=== PATIENT | male | born 1960 | race Caucasian/White ===

== ENCOUNTER 2018-11-02 15:43 | Inpatient (IN) | payer MEDICARE ==
[~2018-11-02] VITALS: Ht 193 cm; Wt 132.7 kg
--- NOTE | ~2018-11-02 | PR ---
[place], [place] PROGRESS NOTE NAME: [id number] UNIT #: [id number] ROOM: 316 DOCTOR: ISAIAS ACEVES CNP BIRTHDATE: [birth year] DOS: 11/13/2018 CHIEF COMPLAINT: "I have slept since 8:00 last night." SUMMARY OF THE VISIT: The patient was interviewed as he sat on the edge of his bed. The patient was sleeping when I entered the room, but he did arouse easily when I called his name. The patient denies any auditory or visual hallucinations. The patient reports that he feels good. Therefore, the patient reports that his appetite has been good. The patient's speech does remain somewhat garbled and difficult to understand. Staff reports that the patient did sleep 6 hours last night. No behaviors. No agitation. MENTAL STATUS EXAMINATION: The patient is alert and oriented. He is pleasant and cooperative with me. No eren or hypomania noted. No delusions or paranoia noted. No psychotic symptoms noted. No auditory or visual hallucinations noted. The patient's mood was calm. The patient's affect is congruent with mood. PLAN: We will continue the patient's medications as prescribed. We will monitor for benefits and side effects of the medication. Continue to monitor the patient's sleep pattern. Encourage sleep hygiene. Encouraged the patient to engage in individual and chowdhury milieu activity. Continue fall and safety precautions. Plan is to return the patient to the least restrictive environment once he is considered psychiatrically stable. Isaias Aceves CNP CM:PNTRANS [id number] ISAIAS ACEVES CNP 11/13/18 2258 interface
--- NOTE | ~2018-11-02 | DS ---
[place], [place] DISCHARGE SUMMARY [id number] UNIT #: [id number] ROOM: 311 DOCTOR: AMANDA DE LEÓN MD BIRTHDATE: [birth year] DOS: 11/15/2018 CHIEF COMPLAINT: "I need a good doctor, I need an eye doctor." HISTORY OF PRESENT ILLNESS: This is a 58-year-old white male known to me from his previous admission here to the [facility] at [facility] as well as his stay at [facility] in [place], [place]. The patient presented after being medically cleared at [facility]. His behavior at [facility] has escalated over the last several weeks prior to this admission. He has become actively psychotic and experiencing significant hallucinations and delusions. He has been agitated and aggressive and threatening. He kicked out his screen window. He believes that his meds are causing him to be unable to walk. He has been urinating in jars in his room and keeping them. He has been making threatening gestures and threatening violence towards staff and peers. He has become episodically compliant and noncompliant with his medications, necessitating an admission and to re-stabilize on medication. SUMMARY OF HOSPITAL COURSE: The patient was admitted to the unit where his Invega Sustenna was discontinued. Despite compliance with it, he became psychotic. Nonetheless, the patient did receive Geodon intramuscular injections with relatively good results and with a good tolerability. For this reason, Geodon 80 mg b.i.d. was started. The patient had a bout then where he seemed to improve from a psychotic standpoint, but he was not sleeping and would often go days then without sleep often wandering the halls aimlessly. Geodon was then shifted to 160 mg at bedtime in an effort to help him sleep. Despite this, he did not sleep and trazodone 150 mg was added and subsequently increased to 300 mg at bedtime with good results. The patient had tolerated this medication regimen well and did improve sufficiently to return back to [facility] where we will follow him closely. MENTAL STATUS AT DISCHARGE: He is alert and oriented to person, place and very approximate to time. Mood does seem to be fairly euthymic. Affect is much more appropriate. His speech is somewhat garbled and slow and deliberate, but this is baseline. There is no overt hypomania or eren and there is no gross psychosis. Short, intermediate, and long-term memory for the most part is intact. FINAL DIAGNOSIS UPON DISCHARGE: Schizoaffective disorder. DISPOSITION: All of his prescriptions have been printed and will be sent to him as he returns to [facility]. At the time of discharge, he was medically and psychiatrically stable. I will be the treating psychiatrist of record upon his readmission to [facility]. [place], [place] DISCHARGE SUMMARY NAME: RADHA BRUMFIELD UNIT #: [id number] ROOM: [facility] DOCTOR: AMANDA DE LEÓN MD BIRTHDATE: [birth year] AMANDA DE LEÓN MD CM:DISCHARG [id number] AMANDA DE LEÓN MD 11/15/18 1035 interface
--- NOTE | ~2018-11-02 | PR ---
[place], [place] PROGRESS NOTE NAME: [id number] UN[facility] #: [id number] ROOM: 311 DOCTOR: ISAIAS ACEVES CNP BIRTHDATE: [birth year] DOS: 11/14/2018 CHIEF COMPLAINT: "I slept good." SUMMARY OF VISIT: The patient was interviewed as he sat on the edge of his bed. The patient was sleeping whenever I entered his room; however, he aroused easily whenever I called his name. The patient reports that he slept well last night; however, he does feel somewhat tired this morning. The patient reports that his appetite has been good. He denies hearing any auditory or visual hallucinations. Staff reports that the patient did sleep 7 hours last night and has been compliant with taking medication. MENTAL STATUS EXAMINATION: The patient is alert and oriented. He is pleasant and cooperative with me. No eren or hypomania noted. No delusions or paranoia noted. No psychotic symptoms noted. No auditory or visual hallucinations noted. The patient's mood was calm. Affect congruent with mood. PLAN: Continue patient's medications as prescribed. He appears to be tolerating them. The medication appears to be effective. I will encourage the patient to engage in individual and chowdhury milieu activity. Continue fall and safety precautions. Plan is to return the patient to the least restrictive environment once he is considered psychiatrically stable. Isaias Aceves CNP CM:PNTRANS [id number] ISAIAS ACEVES CNP 11/15/18 0047 interface
--- NOTE | ~2018-11-02 | PR ---
[place], [place] PROGRESS NOTE NAME: RADHA BRUMFIELD UNIT #: [id number] ROOM: 316 DOCTOR: AMANDA DE LEÓN MD BIRTHDATE: [birth year] DOS: 11/11/2018 INTERVAL NOTE CHIEF COMPLAINT: "I slept. They do not like me here. They are making up stories." SUMMARY OF THE VISIT: The patient was interviewed as he was sitting on the edge of his bed. He reports that he got a good 12 hours of sleep last night. Nurses report, he slept only about 2 and then the rest of the time was wandering the halls. He stated that this is not true and that the nurses do not like him and they made stories up about him, whether this is true paranoia or cognitive issues is unclear. His speech was more understandable today and again whether this was because of the addition or the increase in the Cogentin with a Xero-Lube is unclear. MENTAL STATUS: He is alert and oriented with significant time gaps. Mood does seem to be more euthymic. Affect is more appropriate. He still is somewhat garbled, but more understandable. There is no hypomania or eren, although the sleep issue is problematic. He voiced no auditory or visual hallucinations, but does seem to be somewhat paranoid regarding staff. Memory has significant gaps. PLAN: I will increase his trazodone from 150 mg at bedtime to 300 mg at bedtime and check a valproic acid level today at 3:00 p.m. to ensure that it is therapeutic. Continue to engage in individual and chowdhury milieu activity, returning to the least restrictive environment when psychiatrically stable. AMANDA DE LEÓN MD CM:PNTRANS [phone] AMANDA DE LEÓN MD 11/12/18 0129 interface
--- NOTE | ~2018-11-02 | CON ---
[place], [place] REPORT OF CONSULTATION NAME: [facility] BRUMFIELD [facility] [id number] UNIT #: [id number] ROOM: 316 DOCTOR: SUKI TEIXEIRA ED.D (LONNIE) BIRTHDATE: [birth year] DOS: HISTORY OF PRESENT ILLNESS: The patient is a 58-year-old male referred by Dr. Handley for counseling and evaluation. At the present time, this patient is on the Senior Behavioral Health Unit at [facility]. He states he is single and has never been . He does have a daughter in [place], [place]. He works now at the [employer]. 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 He did graduate high school and also attended [employer] for 2 years in [place], [place]. As his mental illness worsened, he was unable to complete his degree and also he had suffered a traumatic brain injury. This patient is presently residing at [facility] near [place], [place]. His medical history is pertinent for schizoaffective disorder, history of traumatic brain injury, coronary artery disease, congestive heart failure, chronic kidney disease stage 2, prostate cancer, morbid obesity and diabetes mellitus. MEDICATIONS: Include Remeron, Cogentin, Geodon, tramadol, calcium, lisinopril, benztropine, glipizide, clonidine, atenolol, metformin, omeprazole and ziprasidone. ALLERGIES: He is allergic to PENICILLIN and SULFA type drugs. SOCIAL HISTORY: He does admit to smoking cigarettes, but denies any alcohol use or abuse. This patient was awake, alert and oriented in all three spheres. He states he did attempt suicide when he was about 19 years old, but has not attempted since that point in time. He states he does suffer from depression and is obviously suffering from some psychotic issues. He states he is feeling much better now that he is in the [facility] Unit, although he does plan on going back to [facility]. This patient appears to be awake, alert and oriented in all 3 spheres and at this time, denies any suicidal or homicidal ideation or plan. He had become quite aggressive apparently at the long-term care facility, but has manifested no aggressive behavior over his stay here at the hospital. DIAGNOSIS: Schizoaffective disorder. RECOMMENDATIONS: In my opinion, this patient should return to [facility] once he is medically stable and should continue with Dr. Handley and also with the counseling. Thank you very much for this consult. [place], [place] REPORT OF CONSULTATION NAME: RADHA BRUMFIELD UNIT #: [id number] ROOM: [facility] DOCTOR: SUKI TEIXEIRA ED.D (LONNIE) BIRTHDATE: [birth year] SUKI TEIXEIRA ED.D CM:CONSTR:REPORT OF CONSULTATION 1142 11/08/18 3857 interface AMANDA HANDLEY MD
--- NOTE | ~2018-11-02 | PR ---
[place], [place] PROGRESS NOTE NAME: [facility]FIELD [id number] UNIT #: [id number] ROOM: 316 DOCTOR: AMANDA DE LEÓN MD BIRTHDATE: [birth year] DOS: 11/10/2018 CHIEF COMPLAINT: "That medicine you gave me is really strong." SUMMARY OF THE VISIT: The patient was interviewed in his room. He was resting in bed. It took me multiple times to call out his name for him to eventually wake up and engaged in conversation. Much like yesterday, his speech is rather garbled and hard to understand and his tongue does seem to be protruding more and is very dry. He was still fixated on going back to [facility] and whether or not the social media editor has reached out to see if his room has been fixed. Otherwise, he rambled at times nonsensically. MENTAL STATUS: He is alert and oriented. Mood does seem to be more euthymic and he is more jovial. Overall, there is no threatening or agitation noted. There is no hypomania or eren, although his thoughts are somewhat fragmented at times. There are no gross psychotic symptoms noted. Short term, intermediate, and long-term memory for the most part are intact. PLAN: Given the fact that he does seem to have a significant dry mouth and also exhibiting some extrapyramidal symptoms, I will simultaneously start him on Xero-Lube spray p.r.n. and also increase his Cogentin from 1 mg twice a day to 1 mg 3 times a day. We will monitor for risk, benefits. We will engage in individual and chowdhury milieu activity, returning to the least restrictive environment when psychiatrically stable. AMANDA DE LEÓN MD CM:PNTRANS 1008 AMANDA DE LEÓN MD 11/10/18 5376 interface
--- NOTE | ~2018-11-02 | PR ---
[place], [place] PROGRESS NOTE NAME: RADHA BRUMFIELD UNIT #: [id number] ROOM: 316 DOCTOR: AMANDA DE LEÓN MD BIRTHDATE: [birth year] DOS: 11/08/2018 CHIEF COMPLAINT: "I am not sleeping." SUMMARY OF THE VISIT: The patient was interviewed as he was sitting in the edge of the dining area. He was bright upon approach. He continues to be mixed in his presentation at times making sense and at other times trailing off into gibberish. He was not agitated or aggressive and exhibited no mood lability. He did complain of not sleeping at night and he did also note that he feels he is taking too much daytime medicines. I told him I would work on both of these issues for him and see if we can make matters better. MENTAL STATUS: He is alert and oriented with time gaps. Mood does seem to be still labile. Affect at times inappropriate. He is mixed with his presentation and well not pressured. He is nearly pressured. He remains grossly psychotic too. PLAN: I will go ahead and change the times and dosing of his meds. Instead of giving his Geodon at 1800 hours, I will give it at bedtime and I will change his Depakote to Depakote ER and change the dose to 2000 mg to be given at bedtime. This should simplify the amount of medications he is getting during the day and increase the amount of medications he is getting at night, so that he is able to sleep better. We will monitor and support. AMANDA DE LEÓN MD CM:PNTRANS [phone] AMANDA DE LEÓN MD 11/08/18 2335 interface
--- NOTE | ~2018-11-02 | PR ---
[place], [place] PROGRESS NOTE NAME: [id number] UNIT #: [id number] ROOM: 316 DOCTOR: AMANDA DE LEÓN MD BIRTHDATE: [birth year] DOS: 11/04/2018 CHIEF COMPLAINT: "Can that psychiatric social worker supervisor be my counselor." SUMMARY OF THE VISIT: The patient was interviewed as he was sitting at the edge of the dining area. He had already eaten his breakfast. He reported to me that he did not sleep well, but stated that this is a common occurrence for him and that sleep has always been an issue. He continues to have symptoms of eren and psychosis, is grossly delusional and hypomanic. He did state that he was open to having me adjust his medicines accordingly. MENTAL STATUS: He is alert and oriented to person, place and fairly much to time. Mood does seem to be somewhat expansive and grandiose. He remains grossly delusional. Short-term memory has mild gaps, otherwise he is intact. PLAN: I will change his Geodon from 80 mg b.i.d. to 160 mg to be given in the p.m. hours to further aid sleep. I will add Depakote 2000 mg now to try to break the eren and 500 mg t.i.d. to sustain. Engage in individual and chowdhury milieu activity, returning to the least restrictive environment when psychiatrically stable. AMANDA DE LEÓN MD CM:PNTRANS [phone] 18 AMANDA DE LEÓN MD 11/04/182118 interface
--- NOTE | ~2018-11-02 | PR ---
[place], [place] PROGRESS NOTE NAME: RADHA BRUMFIELD UNIT #: [id number] ROOM: 316 DOCTOR: AMANDA DE LEÓN MD BIRTHDATE: [birth year] DOS: 11/09/2018 INTERVAL NOTE CHIEF COMPLAINT: "I need to find out if they fixed to my room at [facility] and do I have to pay any money?" SUMMARY OF THE VISIT: The patient was interviewed in the quiet room. He engaged readily in conversation. He was concerned whether or not they fixed his room at [facility] and if he had to pay any money. His speech was rather slow and he was rather thick tongue and he did report he is not sleeping well at night. This is an ongoing issue for him. MENTAL STATUS: He is alert and oriented with time gaps. Mood does seem to be more euthymic. Affect is more appropriate. He still is fragmented and disjointed in his thinking and oftentimes jumps from topic to topic. Outside of the rather thick tongue, I note no other side effects. PLAN: I will go ahead and discontinue his Remeron as this does not seem to be effective in improving his sleep. I will start him on trazodone 150 mg at bedtime. Monitor and support, engage in individual and chowdhury milieu activity, returning then to [facility] with the least restrictive environment when psychiatrically stable. AMANDA DE LEÓN MD CM:PNTRANS [phone] AMANDA DE LEÓN MD 11/09/18 1550 interface
--- NOTE | ~2018-11-02 | WRIGHTHP ---
[place], [place] PATIENT HISTORY AND PHYSICAL EXAM [id number] UN[facility] #: [id number] ROOM: 316 DOCTOR: AMANDA DE LEÓN MD BIRTHDATE: [birth year] DOS: 11/03/2018 INITIAL PSYCHIATRIC EVALUATION CHIEF COMPLAINT: "I need a good doctor and I need an eye doctor." HISTORY OF PRESENT ILLNESS: This is a 58-year-old white male known to me from a previous admission here to the [facility] as well as his stay at [facility] in the [facility]. The patient presented after being medically cleared at [facility] [place] [facility]. His behavior has escalated over the last several weeks prior to this admission. The patient has been actively psychotic and experiencing significant hallucinations and delusions. He has become increasingly agitated and threatening. He kicked out his screen window. He believes that his meds are causing him to be unable to walk. He has been urinating in jars in his room and keeping them. He has been making threatening gestures and threatening violence to other staff and peers. He has been episodically compliant and noncompliant with his medication, further exacerbating his underlying psychosis. He is admitted now to re-stabilize on medication, to engage in individual and chowdhury milieu activity and to return to the least restrictive environment when psychiatrically stable. PAST MEDICAL HISTORY: Remarkable for allergic rhinitis, coronary artery disease, congestive heart failure, chronic kidney disease stage 2, COPD, diabetes, hypertension, GERD, hyperlipidemia, morbid obesity, prostate cancer and a lengthy history of schizoaffective disorder. SOCIAL HISTORY: The patient is a cigarette smoker. He does not drink alcohol nor use illicit drugs. ALLERGIES: Listed to PENICILLIN and SULFA. STRENGTHS: Ambulatory, good verbal skills. WEAKNESSES: Chronic severe mental health issues and poor coping skills. MENTAL STATUS: The patient is alert and oriented. Mood does seem to be rather expansive. He speaks at times almost pressured and at times nonsensically. He rambles from topic to topic. There was no agitation directed towards me and he was rather pleasant for the most part. Memory does seem to be relatively intact. DIAGNOSIS UPON ADMISSION: Schizoaffective disorder. PLAN: I will go ahead at this point and discontinue his Invega Sustenna. He is due for his next injection on 11/08/2018. I will increase his Cogentin from 0.5 mg twice daily to 1 mg twice daily to offset some of the extrapyramidal symptoms. He has been receiving very frequent Geodon injections with relatively good results. He tolerates the Geodon injections well, so I will go ahead and start him out on Geodon 80 mg b.i.d. We will engage in individual and chowdhury milieu activity and then return to the least restrictive environment when [place], [place] PATIENT HISTORY AND PHYSICAL EXAM NAME: RADHA BRUMFIELD UNIT #: [id number] ROOM: [facility] DOCTOR: AMANDA DE LEÓN MD BIRTHDATE: [birth year] psychiatrically stable. AMANDA DE LEÓN MD CM:HISPHYS:PATIENT HISTORY AND PHYSICAL EXAMINATION 0 AMANDA DE LEÓN MD 11/03/18 0951 interface
[~2018-11-02 15:43] MED LIST: BENZTROPINE ME0.5 MG PO; CLONIDINE HCL0.1 MG PO; COGENTIN0.5 MG PO; FLUPHENAZI25 MG/1 ML IM; GLIPIZIDE5 MG PO; GLUCOPHAGE1000 MG PO; HUMULIN R100 UNIT/1 IJ; HYDROCHLOROTHIA50 M1 PO; IMDUR SA30 MG PO; INVEGA SUSTENN156 MG IM; INVEGA SUSTENN234 MG IM; INVEGA9 MG PO; LIPITOR20 MG PO; LISINOPRIL2.5 MG PO; LISINOPRIL40 MG PO; MAGNESIUM OXID400 MG PO; OLANZAPINE20 M2 PO; OMEPRAZOLE D/R20 MG PO; PROLIXIN10 MG PO; TENORMIN50 MG PO; TRAMADOL HCL50 MG PO; VITAMIN D50000 UNIT PO
[2018-11-02] MEDS ORDERED: GEODON20 M1 IM (20:57)
[2018-11-02 23:38] VITALS: BP 146/87
--- NOTE | 2018-11-02 23:52 | NUR ---
RADHA BRUMFIELD Roney a 58 year old M admitted via stretcher from the [facility] TO [facility]. PT IS A VOLUNTARY ADMISSION PER POA. Arrived on unit at 2320. ALLERGIES: SULFA PCN. Vital signs are: 98.2-89-18 146/87 PRIOR TO ADMISSION POA GAVE CONSENT FOR ALL ADMISSION FORMS. Authorization For The Release of Medical Information, Clothing List, Consent to Voluntary Admission and Hospitalization, Consent and Release Forms/Receipt of Rights, Acknowledgement of Advance Directive Information, Behavioral Health Consent Form, and Informed Consent of Medications. Admitted under the services of Dr. SARTHAK MARTINEZ,AMANDA. A search was conducted and hazardous articles were removed. Client was oriented to his room. PT WAS SEDATED ON ADMISSION & WAS TAKEN TO HIS ROOM. WHEN OFFERED ASSISTANCE HE STATED, "DON'T TOUCH ME". PT GOT OFF OF STRETCHER BY HIMSELF & WENT TO BED IMMEDIATELY. GAIT SLIGHTLY UNSTEADY. SPEECH SLURRED & GARBELED. DIFFICULT TO UNDERSTAND. PT UNABLE TO COMPLETE MINI MENTAL ASSESSEMENT & GERIATRIC ASSESSMENT AT THIS TIME DUE TO SEDATION. PT RECEIVED GEODON 20 MG IM & ATIVAN 2 MG IM @ 2010 AT [facility] ALESSANDRO MULLINS
[2018-11-03 00:16] VITALS: BP 146/87
--- NOTE | 2018-11-03 00:21 | NUR ---
NOTIFIED DR HAMM OF ADMISSION. DR YOO [facility]
--- NOTE | 2018-11-03 00:53 | NUR ---
DR THAYER ON UNIT TO SEE PT FOR MEDICAL MANAGEMENT.
--- NOTE | 2018-11-03 05:12 | NUR ---
PT HAS SLEPT PAST 2330 WITH 1 BRIEF AWAKENING TO GO TO THE BATHROOM. WHILE AWAKE HE WAS DEMANDING MICHELLE STEVE [employer] FO[employer]. 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 GRANDIOSE & PARANOID DELUSIONS VOICED. PT DID RETURN TO SLEEP WITH IN APPX 10 MIN.
--- NOTE | 2018-11-03 06:33 | NUR ---
REFUSED AM LABS.
--- NOTE | 2018-11-03 07:41 | NUR ---
Patient in dining room with peers with no c/o discomfort. Respirations easy and regular. Vital signs stable. No overt distress. EUSEBIA CHACKO
[2018-11-03 08:00] VITALS: BP 145/79
--- NOTE | 2018-11-03 08:00 | NUR ---
Treatment Planmeeting with Dr. Handley, RN, AT, SW and Resistance Welder. Plan for discharge next week. Pt. is Current Resident at [facility].
--- NOTE | 2018-11-03 10:00 | NUR ---
Spoke with Jewel at [facility]. Pt. is LTC at facility and will return to facility at discharge.
--- NOTE | 2018-11-03 10:58 | NUR ---
Pt was pleasant during assessment process. He did voice flight of ideas and paranoid statements. Pt spoke of President Bebeto and how he is controlling pt's medications. Pt also stated that the doctor injected him with cancer. At times it was difficult for this hand sign writer to understand what pt was saying due to his speech. Pt was also fixated on writing a sequence of numbers down on a paper. Pt attempted to explain these numbers to this hand sign writer. Pt's explanation was non-sensical.
--- NOTE | 2018-11-03 11:31 | NUR ---
AM GROUP/THERAPY DOG VISIT PT CHOSE NOT TO ATTEND MORNING GROUP STATING, "I AM AFRAID OF DOGS." PT STAYED IN QUIET ROOM TO LOOK AT A MAGAZINE.
--- NOTE | 2018-11-03 12:10 | NUR ---
PT AGREED TO TAKE AM CLONIDINE AND GLIPIZIDE WITH MUCH ENCOURAGEMENT.
--- NOTE | 2018-11-03 15:51 | NUR ---
PM GROUP/ENNEAGRAM PT WAS PRESENT FOR AFTERNOON GROUP BUT CHOSE TO SIT AND LOOK AT THE PAPER INSTEAD OF PARTICIPATING. PT ATTEMPTED SOCIALIZING BUT IS VERY DIFFICULT TO UNDERSTAND AT THIS TIME. PT EXHIBITED NO SIGNS OF AGITATION OR AGGRESSION NOR DID PT EXPRESS ANY PARANOID IDEATIONS. PT WILL BE ENCOURAGED TO ATTEND FUTURE GROUP SESSIONS
--- NOTE | 2018-11-03 16:47 | NUR ---
PHYSICAL THERAPY PT evaluation attempted. Patient eating dinner at this time. Will try again at a later time. Thank you. Kiarra Andrew, PT,DPT
--- NOTE | 2018-11-03 17:58 | NUR ---
PT IS PARANOID DELUSIONAL, SPEAKING WITH UNSEEN OTHERS. PT NOTED TO HAVE FLIGHT OF IDEAS AND GRANDIOSE BEHAVIORS. PT PACING HALLS PT IS ASSESSED FOR ORIENTATION LEVEL, MOOD AND AFFECT. ASSESSED FOR SI/HI. ASSESSED FOR HALLUCINATIONS AND DELUSIONS. ASSESSED FOR FALL RISK. PT IS ORIENTED TO PERSON, PLACE AND APPROXIMATE TO TIME. MOOD IS SAD, PT IS BEGAN ASSESSMENT COOPERATING, THEN STATED "I REALLY DON'T FEEL LIKE BEING INTERROGATED RIGHT NOW". AFFECT IS APPROPRIATE, VERBAL RESPONSES MOSTLY APPROPRIATE TO CONTENT. CONVERSATION BEGINS RELEVANT AND THEN TOPICS SWAY QUICKLY FROM ONE TO ANOTHER, FOI APPARENT. DENIES SI, INTENT AND PLAN. PT OVERTLY ATTENDING TO INTERNAL STIMULI, PT EYE DARTING, APPEARING TO LISTEN TO UNSEEN OTHERS AND THEN REPLIES TO THEM. PT PACING HALLWAY AND IN AND OUT OF QUIET ROOM OR DINING ROOM TALKING TO SELF AND UNSEEN OTHERS. PT NOT CONSIDERED A FALL RISK. Q 15 MIN MONITORING MAINTAINED FOR SAFETY. WILL PRESENT REALITY AND REDIRECT APPROPRIATE. WILL ENCOURAGE PT TO VOICE PARANOID DELUSIONS THEY OCCUR, STAFF WILL REDIRECT AND REASSURE APPROPRIATE. WILL CONTINUE TREATMENT PLAN OUTLINED PER DR. DE LEÓN. WILL ADMINISTER MEDICATIONS AND MONITOR FOR EFFECTIVENESS AND SIDE EFFECTS. WILL MAINTIAN Q15 MIN MONITORING FOR SAFETY.
--- NOTE | 2018-11-03 22:45 | NUR ---
P-HALLUCINATIONS. PAIENT ALERT WITH PERIODS OF CONFUSION. PATIENT WITH SHORT TERM AND MCC MEMORY DEFICITS. PATIENT WITH NO RESPIRATORY DISTRESS. PATIENT WITH VISUAL AND AUDITORY HALLUCINATIONS. PATIENT SEEING AND TALKING AND LAUGHING WITH UNSEEN OTHERS. PATIENT WITH PARANOID DELUSIONS ABOUT TAKING MEDICATIONS. PATIENT WITH SLURRED SPEECH. R-REDIRECTION WITH 1:1 THERAPEUTIC INTERVENTIONS AND PRESENT REALITY. EDUCATE AND ENCOURAGE MEDICATION COMPLIANCE. R-PATIENT MEDICATION COMPLIANT AT THIS TIME WITH ENCOURAGEMENT. PATIENT AMBULATING ON UNIT WITHOUT ASSISTIVE DEVICE AND WITH UNSTEADY GAIT AT TIMES. PATIENT USING VULGAR LANGUAGE INTERMITTENTLY WHEN TALKING WITH UNSEEN OTHERS. PATIENT PROVIDED NOURISHMENT AND FLUIDS. PATIENT WITH GOOD APPETITE. PATIENT WANDERING AND PACING AT TIMES ON UNIT. PATIENT REFUSING SKIN ASSESSMENT AT THIS TIME. PATIENT WETTING HAIR AT TIMES DURING SHIFT "SO I CAN COMB MY HAIR BETTER". PATIENT OFFERED SHOWER AND PATIENT STATING "I'M GOING TO WAIT UNTIL THE MORNING". P-CONTINUE TO ENCOURAGE MEDICATION COMPLIANCE, CONTINUE TO PRESENT REALITY, ENCOURAGE GROUP THERAPY WHILE AWAKE
[2018-11-04 07:39] VITALS: BP 142/85
--- NOTE | 2018-11-04 08:00 | NUR ---
Patient resting quietly with no c/o discomfort. Respirations easy and regular. Vital signs stable. No overt distress. EUSEBIA CHACKO
--- NOTE | 2018-11-04 08:00 | NUR ---
Treatment Plan meeting with Dr. Handley, RN, AT, SW and Pararescue Craftsman. Plan for discharge next week. Pt. will return to [facility].
--- NOTE | 2018-11-04 10:46 | NUR ---
PT REFUSING SKIN ASSESSMNET AT THIS TIME, STATING "NO THANK YOU, I'M GOOD"
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
--- NOTE | 2018-11-04 11:51 | NUR ---
AM GROUP PT WAS IN HALLWAY AND REFUSED GROUP STATING THAT HE NEEDED HIS MOUTHWASH. PT LATER ATTENDED GROUP AND SAT AND LISTENED TO MUSIC AND SOCIALIZED WITH THIS REELING MACHINE SETUP OPERATOR. PT EXPRESSED NO PARANOID IDEATIONS DURING OUR TALK
--- NOTE | 2018-11-04 15:49 | NUR ---
Occupational Therapy evaluation completed on 3 with full eval to follow. Precautions include 3N unit precautions,low complexity level 74044 via chart review, testing and evaluation. [facility]. No further OT indicated at this time. Thank you. Stacy Reed OTR/L
--- NOTE | 2018-11-04 15:56 | NUR ---
PHYSICAL THERAPY Patient evaluated on 3, full evaluation to follow. D/C PT after evaluation, patient is indeoendanet with all mobility throghout the facility. PAtient reports some loses of balance due to medication changes. PAtient is low complexity via chart review, tests and evaluation: [id number]. Thank you for this referral. Alejandra Montgomery,PT
--- NOTE | 2018-11-04 18:21 | NUR ---
PT IS OBSERVED TO BE RESPONDING TO INTERNAL STIMULI. PT IS ASSESSED FOR ORIENTATION LEVEL, MOOD AND AFFECT. ASSESSED FOR SI/HI. ASSESSED FOR HALLUCINATIONS AND DELUSIONS. ASSESSED FOR FALL RISK. PT IS ORIENTED TO PERSON, PLACE AND APPROXIMATE TO TIME. MOOD IS PLEASANT, COOPERATIVE WITH ASSESSMENT. PT IS INTERMITTENTLY NAPPING T/O SHIFT, SOMEWHAT DROWSY. AFFECT IS APPROPRIATE, VERBAL RESPONSES MOSTLY APPROPRIATE TO CONTENT. PATIENT SPEECH SLURRED AND TANGENTIAL AT TIMES. DENIES SI, INTENT AND PLAN. PT OVERTLY ATTENDING TO INTERNAL STIMULI, PT TALKING AND LAUGHING WITH UNSEEN OTHERS. PT NOT CONSIDERED A FALL RISK. Q 15 MIN MONITORING MAINTAINED FOR SAFETY. WILL PRESENT REALITY AND REDIRECT APPROPRIATE. WILL CONTINUE TREATMENT PLAN OUTLINED PER DR. DE LEÓN. WILL ADMINISTER MEDICATIONS AND MONITOR FOR EFFECTIVENESS AND SIDE EFFECTS. WILL MAINTIAN Q15 MIN MONITORING FOR SAFETY.
[2018-11-04 20:00] VITALS: BP 146/76
--- NOTE | 2018-11-04 21:30 | NUR ---
P-HALLUCINATIONS. PATIENT ALERT WITH PERIODS OF CONFUSION. PATIENT WITH SHORT TERM AND STONE SAWYER MEMORY DEFICITS. PATIENT WITH NO RESPIRATORY DISTRESS. PATIENT WITH VISUAL AND AUDITORY HALLUCINATIONS. PATIENT SEEING AND TALKING AND LAUGHING WITH UNSEEN OTHERS. PATIENT WITH PARANOID DELUSIONS ABOUT TAKING MEDICATIONS. PATIENT WITH SLURRED SPEECH. I-REDIRECTION WITH 1:1 THERAPEUTIC INTERVENTIONS AND PRESENT REALITY. EDUCATE AND ENCOURAGE MEDICATION COMPLIANCE. R-PATIENT MEDICATION COMPLIANT AT THIS TIME. PATIENT AMBULATING ON UNIT WITHOUT ASSISTIVE DEVICE AND WITH UNSTEADY GAIT AT TIMES. PATIENT AGITATED AT TIMES AND OVERHEARD MUMBLING AND USING VULGAR LANGUAGE. PATIENT PROVIDED NOURISHMENT AND FLUIDS. PATIENT WITH GOOD APPETITE. PATIENT WANDERING AND PACING AT TIMES ON UNIT. PATIENT REFUSING SKIN ASSESSMENT AT THIS TIME. PATIENT'S MOUTH ALSO CHECKED AFTER MEDICATION ADMINISTRATION TO SEE IF POCKETING/CHEEKING MEDICATIONS P-CONTINUE TO ENCOURAGE MEDICATION COMPLIANCE, CONTINUE TO PRESENT REALITY, ENCOURAGE GROUP THERAPY WHILE AWAKE
--- NOTE | 2018-11-05 01:22 | NUR ---
24 HR chart check completed.
--- NOTE | 2018-11-05 05:51 | NUR ---
PATIENT SLEPT 3-4 HOURS OF INTERRUPTED SLEEP THROUGHOUT SHIFT. Q 15 MINUTE CHECKS MAINTAINED
[2018-11-05 07:32] VITALS: BP 148/89
--- NOTE | 2018-11-05 08:15 | NUR ---
Treatment Plan meeting with Lisa RAMIREZ RN, AT, SW and Discharge Planne. Plan for discharge next week. Pt. will return to [facility].
--- NOTE | 2018-11-05 10:45 | NUR ---
Clinical Updates faxed to [facility] Attn: Jewel.
--- NOTE | 2018-11-05 11:16 | NUR ---
Phoned pt's guardian Rea Marisela and left a message offering to schedule a family meeting. Await a return call.
--- NOTE | 2018-11-05 11:36 | NUR ---
DR. YOO ON UNIT TO ASSESS PATIENT.
--- NOTE | 2018-11-05 11:38 | NUR ---
AM GROUP/COLOR THERAPY AND CONVERSATION PT WAS IN AND OUT OF GROUP AND AVOIDS HAVING TO DO ANY ACTIVITY. PT SPENT THE LAST HOUR OF GROUP "TALKING" WITH A PEER. PT EXPRESSED NO PARANOID DELUSIONS DURING GROUP
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
--- NOTE | 2018-11-05 15:48 | NUR ---
PM GROUP/LEISURE INTERESTS PT ATTENDED AFTERNOON GROUP THERAPY AND PARTICIPATED BY WORKING A WORD JUMBLE AND A WORDSEARCH. PT EXPRESSED NO PARANOID IDEATIONS DURING GROUP
--- NOTE | 2018-11-05 16:08 | NUR ---
Shift chart check completed.
--- NOTE | 2018-11-05 17:03 | NUR ---
P: VISUAL AND AUDITORY HALLUCINATIONS. I: ONE ON ONE, REDIRECTION, REORIENT TO SITUATION. ENCOURAGED TO PARTICIPATE IN GROUP SESSION. R: PATIENT IS ALERT TO PERSON AND SOMEWHAT TIME (MONTHA AND YEAR); ABLE TO VOICE NEEDS. PATIENT MUMBLES WITH TALKING WITH STAFF. PATIENT DENIES ANY HALLUCINATIONS, DELUSIONS, HI/SI OR PAIN. PATIENT IS RESPONDING TO INTERNAL STIMULI; IN QUIET ROOM WHISPERING TO FIRE PLACE. NO AGGRESSION OBSERVED. MEDICATION COMPLAINT WITH EDUCATION PROVIDED. Q 15 MINUTE SAFETY CHECKS MAINTAINED. AMBULATORY WITH STEADY GAIT. 1 PERSON ASSIST- VERBAL CUEING WITH ACTIVITIES OF DAILY LIVING, CONTINENT OF BOWEL AND BLADDER. SET UP FOR MEALS, INTAKES ARE GOOD WITH ADEQUATE FLUIDS. PATIENT DID NOT PARTICIPATE IN GROUP SESSION TODAY. PATIENT IS INTERACTIVE WITH STAFF. PATIENT REFUSED SKIN ASSESSMENT. P: CONTINUE TO MONITOR FOR AGGRESSSION, HALLUCINATIONS AND DELUSIONS; PROVIDE ONE ON ONE, REDIRECTION NEEDED.
[2018-11-05 20:00] VITALS: BP 132/80
--- NOTE | 2018-11-05 21:11 | NUR ---
P-HALLUCINATIONS. PATIENT ALERT WITH PERIODS OF CONFUSION. 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 PATIENT WITH NO RESPIRATORY DISTRESS. PATIENT WITH VISUAL AND AUDITORY HALLUCINATIONS. PATIENT SEEING AND TALKING AND LAUGHING WITH UNSEEN OTHERS. PATIENT PARANOID ABOUT TAKING MEDICATIONS AND ASKING TO REVIEW HIS MEDICATIONS AT HS. PATIENT WITH SLURRED SPEECH. I-REDIRECTION WITH 1:1 THERAPEUTIC INTERVENTIONS AND PRESENT REALITY. EDUCATE AND ENCOURAGE MEDICATION COMPLIANCE. R-PATIENT MEDICATION COMPLIANT AT THIS TIME. PATIENT AMBULATING ON UNIT WITHOUT ASSISTIVE DEVICE AND WITH UNSTEADY GAIT AT TIMES. PATIENT AGITATED AT TIMES AND OVERHEARD MUMBLING AND USING VULGAR LANGUAGE. PATIENT WITH FLIGHT OF IDEAS AT TIMES AND NONSENSICAL WHEN TALKING TO HIS BROTHER ON TELEPHONE. PATIENT PROVIDED NOURISHMENT AND FLUIDS. PATIENT WITH GOOD APPETITE. PATIENT WANDERING AND PACING AT TIMES ON UNIT. PATIENT REFUSING SKIN ASSESSMENT AT THIS TIME. PATIENT'S MOUTH ALSO CHECKED AFTER MEDICATION ADMINISTRATION TO SEE IF POCKETING/CHEEKING MEDICATIONS P-CONTINUE TO ENCOURAGE MEDICATION COMPLIANCE, CONTINUE TO PRESENT REALITY, ENCOURAGE GROUP THERAPY WHILE AWAKE
--- NOTE | 2018-11-06 02:34 | NUR ---
24 HR chart check completed.
--- NOTE | 2018-11-06 05:18 | NUR ---
PATIENT SLEPT 5-6 HOURS INTERRUPTED THROUGHOUT SHIFT. Q 15 MINUTE CHECKS MAINTAINED
[2018-11-06 07:50] VITALS: BP 144/71
--- NOTE | 2018-11-06 08:38 | NUR ---
Patient resting quietly with no c/o discomfort. Respirations easy and regular. Vital signs stable. No overt distress. EUSEBIA CHACKO
--- NOTE | 2018-11-06 09:20 | NUR ---
PT SPEECH BIZARRE. FLIGHT OF IDEAS. TANGENTIAL. AUDITORY HALLUCINATIONS. ATTEMPTED TO REDIRECT PT AND ENGAGE IN APPROPRIATE CONVERSATION. PT OBSERVED TALKING TO CARTER, PACING HALLS, EYE DARTING AND LAUGHING AT UNSEEN OTHERS. PT IS FREQUENTLY OBSERVED TO BE SITTING AND HAVING LENGTHY CONVERSATION WITH UNSEEN OTHERS. PT UNABLE TO FOCUS TO HAVE CLEAR CONVERSATION, TOPICS CHANGING MIDSENTENCE, SPEECH IS RAPID AND GARBLED. WILL CONTINUE TO REDIRECT PT AND ENGAGE PT IN APPROPRIATE CONVERSATION. WILL CONTINUE CURRENT TREATMENT PLAN. WILL PRESENT REALITY APPROPRIATE. Q 15 MIN MONITORING PER POLICY FOR SAFETY.
--- NOTE | 2018-11-06 11:47 | NUR ---
AM GROUP/LEISURE SKILLS PT INSISTED WORKING ON A BIRDBidRazor AND STATED "I CAN'T DO ANYTHING ELSE BECAUSE I DONT HAVE MY GLASSES" THIS STAFF SUGGESTS TRYING A PAIR OF THE [facility] CHEATER GLASSES. THIS STAFF ALLOWS PT TO WORK ON A BIRDBidRazor. WHILE DOING SO PT HYPERVERBAL, IF NOT TALKING TO ANOTHER PT OR STAFF PT TALKING TO SELF.PT DID NOT EXPRESS ANY PARANOID DELSUIONS AT THIS TIME AND WILL CONTINUE TO BE ENCOURAGED TO ATTEND AND PARTICIPATE IN FUTURE GRUP SESSIONS.
--- NOTE | 2018-11-06 15:53 | NUR ---
PM GROUP/MOVIE PT ATTENDED AND PARTICIPATED TO BEST OF ABILITY. PT CONVERSATING WITH OTHERS AND SELF. IF PEERS WERE NOT RESPONDING TO CONVERSATION PT CONTINUED TO TALK TO SELF. PT DID NOT EXPRESS ANY PARANOID DELUSIONS AT THIS TIME. PT WILL CONTINUE TO BE ENCOURAGED TO ATTEND AND PARTICIPATE IN FUTURE GROUP SESSIONS.
--- NOTE | 2018-11-06 18:51 | NUR ---
Shift chart check completed.
[2018-11-06 20:00] VITALS: BP 139/88
--- NOTE | 2018-11-06 21:04 | NUR ---
INTERACTIVE WITH PEERS DURING SNACK. GAIT STEADY. COOPERATIVE AND PLEASENT. ORIENTED TO SELF, SPEECH PRESSURED AND NONSENCICAL. REVIEWED MEDICATIONS WITH CLIENT WHICH HE TOOK WITHOUT DIFFICULTY. NO OUTBURSTS NOTED. NO ACTIVE HALLUCINATIONS NOTED AT THIS TIME
--- NOTE | 2018-11-07 03:00 | NUR ---
POOR SLEEPING HABITS THIS EVENING
--- NOTE | 2018-11-07 03:35 | NUR ---
24 HR chart check completed.
--- NOTE | 2018-11-07 06:17 | NUR ---
SLEPT POOR ALL NIGHT. NAPPED IN INTERVALS
--- NOTE | 2018-11-07 06:43 | NUR ---
REFUSED AM LABS. STATES THEY ALREADY GOT THEM. UNABLE TO REDIRECT.
[2018-11-07 07:12] VITALS: BP 130/25; BP 140/72
--- NOTE | 2018-11-07 07:42 | NUR ---
PT AWAKE, ALERT AND VERBAL, EATING BREAKFAST IN DINING ROOM WITH PEERS. RESPS EASY AND EVEN ON ROOM AIR. NO DISTRESS NOTED.
--- NOTE | 2018-11-07 10:13 | NUR ---
ALBERTO FISH NET MAKER ON UNIT TO SEE PT THIS AM FOR , UPDATE GIVEN. MADE AWARE PT REFUSED AM LAB DRAW.
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
--- NOTE | 2018-11-07 12:43 | NUR ---
AND ON UNIT TO SEE PT AT THIS TIME.
--- NOTE | 2018-11-07 16:00 | NUR ---
SHIFT CHART CHECK COMPLETED.
[2018-11-07 20:00] VITALS: BP 105/77; BP 144/74
--- NOTE | 2018-11-07 20:46 | NUR ---
P--CONFUSED, FLIGHT OF IDEAS, PRESSURED SLURRED SPEECH, PARANOID PEOPLE ARE TRYING TO KILL HIM WITH PILLS. VISUAL AND AUDATORY HALLLUCINATIONS. I--TRIED TO EXPLAIN MEDICATIONS BEING TAKEN ALONG WITH MEDICATIONS EARLIER. UNABLE TO CONVINCE CLIENT. REDIRECTION WITH HIS FLIGHT OF IDEAS AND PARANOIA. DISCUSSED HALLUCINATIONS R--SPEECH IS SLURRED AND GARBLED. ARE YOU TRYING TO POISON ME? I TOOK THESE,(PRESSURED SLURRED SPEECH). I HAD KELLE/AUBRIE, FDC, MOUNTAINS. NONSENSICAL SPEECH P--CONTINUE TO REORIENT, MONITOR FOR CHANGES IN BEHAVIOR OR MOOD. MONITOR FOR REACTIONS TO HALLUCINATIONS
--- NOTE | 2018-11-07 21:09 | NUR ---
AGGITATED THAT HE CAN'T TAKE GLASS OF POP TO ROOM. SCREAMED I NEED SHIT THEN SLAMMED GLASS DOWN ON NURSES STATION. WILL MONITOR
--- NOTE | 2018-11-07 22:36 | NUR ---
REFUSED PM ORAL CARE
--- NOTE | 2018-11-08 00:16 | NUR ---
24 HR chart check completed.
--- NOTE | 2018-11-08 04:30 | NUR ---
POOR SLEEP PAST 0030AM. UP AND DOWN REMAINDER OF EVENING. IRRITATED AND ARGUMENTATIVE. WILL CONTINUE TO MONITOR
--- NOTE | 2018-11-08 06:07 | NUR ---
LESS THAN 2 HOURS SLEEP THIS SHIFT
--- NOTE | 2018-11-08 07:42 | NUR ---
PT AWAKE, ALERT AND VERBAL, PLEASANT, EATING BREAKFAST IN DINING ROOM WITH PEERS. RESPS EASY AND EVEN ON ROOM AIR. NO DISTRESS NOTED.
[2018-11-08 07:48] VITALS: BP 140/70
--- NOTE | 2018-11-08 09:00 | NUR ---
ON UNIT TO SEE PT AT THIS TIME, UPDATE GIVEN, MADE AWARE PT HAS REFUSED LAB DRAW FOR VPA LEVEL X2 DAYS.
--- NOTE | 2018-11-08 10:00 | NUR ---
Treatment Plan meeting with Dr. Handley, RN, AT, SW and Experimental Aircraft Mechanic. Plan for discharge at the end of the week or beginning of next week. Pt. will return to [facility].
--- NOTE | 2018-11-08 11:07 | NUR ---
ON UNIT TO SEE PT AT THIS TIME FOR COUNSELING.
--- NOTE | 2018-11-08 11:38 | NUR ---
Clinical Updates faxed to [facility] Attn: Jewel.
--- NOTE | 2018-11-08 11:51 | NUR ---
AM GROUP PT WAS IN QUIET ROOM LOOKING AT A MAGAZINE AND THEN HAD A MEETING WITH DR. TEIXEIRA. PT WILL ATTEND AFTERNOON GROUP
--- NOTE | 2018-11-08 12:14 | NUR ---
DR. GARCIA ON UNIT TO ASSESS PATIENT.
--- NOTE | 2018-11-08 14:34 | NUR ---
Met with pt this afternoon. Pt was painting a birdhouse during conversation. Pt spoke of the medical doctor seeing him today and that his heart was good. Informed pt that this telegraphic typewriter installer had spoken to pt's guardian of person Rea Antonio. Shared with him the information from that conversation in regards to pt remaining at [facility] vs an apartment. Informed pt that Rea believes that pt has the best living situation at [facility] and offered to pt Rea's reasons for this. Pt did agree that he has freedom to leave the and go to local stores and restaurants if he chooses. Pt voiced acceptance of Rea's decision. Pt was pleasant during conversation. He did not voice any paranoid delusions. This telegraphic typewriter installer did not observe pt speaking to the unseen nor reacting in any way to internal stimuli.
--- NOTE | 2018-11-08 14:37 | NUR ---
P- EVIDENCE OF AUDITORY HALLUCINATIONS OBSERVED BY STAFF. PARANOID REGARDING NUMBER OF MEDICATION PASSES THROUGHOUT THE DAY. NO AGGRESSIVE BEHAVIORS. SPEECH CONTINUES TO BE RAPID AND GARBLED AT TIMES WITH FLIGHT OF IDEAS NOTED. I- ORIENTATION, MOOD AND BEHAVIOR ASSESSED. ASSESSED PT FOR SI/HI, INTENT OR PLAN. ASSESSED PT FOR S/S HALLLUCINATIONS, PARANOIA AND/OR DELUSIONS. MEDICATIONS ADMINISTERED PER PHYSICIAN'S ORDERS. ENCOURAGED PT TO ATTEND AND PARTICIPATE IN ERNANDE[facility]IEU GROUPS AND ACTIVITIES. R- PT IS ALERT AND ORIENTED TO PERSON, PLACE, APPROXIMATE TIME AND SITUATION. RESPS EASY AND EVEN ON ROOM AIR. MOOD APPEARS STABLE WITH APPROPRIATE AFFECT. SPEECH CONTINUES TO BE RAPID, GARBLED AT TIMES. PT CONTINUES WITH FLIGHT OF IDEAS. PT DENIES SI/HI, INTENT OR PLAN. PT DENIES HALLUCINATIONS, HOWEVER, PT CONTINUES TO BE NOTED BY STAFF TO BE CARRYING ON CONVERSATIONS WITH MULTIPLE UNSEEN OTHERS. PT APPEARS PARANOID REGARDING NUMBER OF MEDICATION PASSES THROUGHOUT THE DAY, THIS WAS DISCUSSED WITH AND HOSPITALIST TEAM AND MEDICATION ADMINISTRATION TIMES CONDENSED TO MORNING AND EVENING ONLY TO AIDE IN COMPLIANCE AND DECREASE PT'S PARANOIA. PT HAS NOT DISPLAYED ANY AGGRESSIVE BEHAVIORS. PT ATTENDS AND PARTICIPATES IN GROUPS. NO DISTRESS NOTED. P- PLAN TO CONTINUE CURRENT TREATMENT, CONTINUE TO MONITOR MOOD AND BEHAVIORS, PROVIDE APPROPRIATE REORIENTATION, REDIRECTION AND 1:1 NEEDED. CONTINUE TO ENCOURAGE MEDICATION COMPLIANCE WELL GROUP ATTENDANCE AND PARTICIPATION.
--- NOTE | 2018-11-08 15:41 | NUR ---
PM GROUP PT ATTENDED AND PARTICIPATED IN GROUP BY PAINTING A BIRDHOUSE. PT BECAME AGITATED WITH PEER WHO WAS TALKING TO HIM AND HAD TO BE REDIRECTED. PT CONTINUES TO TALK NONSTOP WITH SLURRED AND SOME NONSENSICAL SPEECH.
[2018-11-08 20:00] VITALS: BP 138/89
--- NOTE | 2018-11-08 20:50 | NUR ---
EVENING/RELAXTION TECHNIQUES PT ATTENDED AND PARTICIPATED IN PART OF GROUP. 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 AFTER SNACK PT WENT OT LAY DOWN. PT WILL CONTINUE TO BE ENCOURAGED TO ATTEND AND PARTICIPATE IN FUTURE GROUP SESSIONS.
--- NOTE | 2018-11-08 23:00 | NUR ---
Patient alert and oriented with periods of confusion at times. ST/LT memory deficits noted. Visual and auditory hallucinations noted at this time. Patient compliant with medications without any difficulty. Redirected/reoriented when appropriate and needed. Provided 1:1 for emotional support. Plan to continue to encourage medication compliance and continue to provide 1:1 for emotional support. Continue to redirect/reorient when needed and appropriate. Q 15 minute safety checks continued and maintained. See [facility] flowsheet for further documentation.
--- NOTE | 2018-11-09 00:04 | NUR ---
PT CAME TO NURSES STATION AT 1045 REQUESTING LOTION FOR FEET, HOLDING PT RIGHTS AND LOOKING FOR WORD SEARCH PUZZLE. PT SAT AT TABLE TALKING WITH THIS NURSE 1:1 WITH RAMBLED SPEECH, WHILE AQUAPHOR APPLIED, PT BOUNCING HIS KNEE RAPIDLY. WHEN LEFT ALONE HE CONTINUED TO TALK TO HIMSELF BUT DENIES INTERNAL STIMULATIONS. DIRECTED PT TO GO TO BED IN WHICH HE TOLD THIS NURSE " I CAN'T SLEEP, I JUST DON'T ANYMORE, I THINK I CHANGED TO A NIGHT OWL" PT DISPLAYIN RESTLESS MOVEMENTS, SHIFTING WEIGHT, RAMBLED SPEECH PATTERN THAT INCREASED WITH SPEED TIME PROGRESSED. OFFERED PT ATIVAN TO HELP WITH POSSIBLE ANXIETY, PT AGREED HE MIGHT NEED IT AND "WHAT COULD IT HURT I TAKE HUNDREDS OF PILLS, ALL THE TIME" ATIVAN PO GIVEN AT THIS TIME.
--- NOTE | 2018-11-09 01:05 | NUR ---
24 HR chart check completed.
--- NOTE | 2018-11-09 05:27 | NUR ---
Patient slept approx. 5 hours throughout shift. Q 15 minute safety checks continued and maintained.
[2018-11-09 07:42] VITALS: BP 145/79
--- NOTE | 2018-11-09 07:45 | NUR ---
PT AWAKE, ALERT AND VERBAL, RESPS EASY AND EVEN ON ROOM AIR. EATING BREAKFAST IN DINING ROOM WITH PEERS.
--- NOTE | 2018-11-09 10:00 | NUR ---
Treatment Plan meeting with Dr. Handley, RN, SW and Insurance Agency Manager. Plan for discharge Next week. Pt. will return to [facility] at discharge.
--- NOTE | 2018-11-09 10:53 | NUR ---
ON UNIT TO SEE PT, UPDATE GIVEN.
--- NOTE | 2018-11-09 11:25 | NUR ---
AND TEAM ON UNIT TO SEE PT.
--- NOTE | 2018-11-09 12:10 | NUR ---
AQUAPHOR APPLIED TO BILATERAL FEET PER PT REQUEST FOR C/O DRYNESS.
--- NOTE | 2018-11-09 12:37 | NUR ---
AM GROUP PT ATTENDED AND PARTICIPATED IN GROUP. PT WORKED ON A "WORD SCRAMBLE" AND A WORDSEARCH. PT PLEASANT BUT IN AND OUT OF DAY ROOM THROUGHOUT GROUP TIME. WHEN IN GROUP THOUGH PT PARTICIPATED. PT DID NOT EXPRESS ANY PARANOID DELUSIONS AT THIS TIME AND LESS TALKATIVE TO SLEF THAN PREVIOUS GROUP SESSIONS. PT WILL CONTINUE TO BE ENCOURAGED TO ATTEND AN DPARTICIPATE IN FUTURE GROUP SESSIONS.
--- NOTE | 2018-11-09 13:04 | NUR ---
P- DECREASED RESPONSE TO INTERNAL STIMULI NOTED THIS DATE, PT DOES NOT APPEAR TO BE TALKING TO UNSEEN OTHERS OFTEN PREVIOUS ASSESSMENTS BY THIS RN. PT IS CALM AND PLEASANT THIS MORNING. MEDICATION COMPLIANT WITHOUT DIFFICULTY. PT APPRECIATIVE OF CARE PROVIDED, PT THANKED THIS NURSE AFTER APPLICATION OF AQUAPHOR TO BILATERAL FEET. I- ORIENTATION, MOOD AND BEHAVIOR ASSESSED. ASSESSED PT FOR SI/HI, INTENT OR PLAN. ASSESSED PT FOR S/S HALLUCINATIONS, PARANOIA AND/OR DELUSIONS. MEDICATIONS ADMINISTERED PER PHYSICIAN'S ORDERS. ENCOURAGED PT TO ATTEND AND PARTICIPATE IN [facility] GROUPS AND ACTIVITIES. R- PT IS ALERT AND ORIENTED TO PERSON, APPROX PLACE AND TIME. RESPS EASY AND EVEN ON ROOM AIR. MOOD APPEARS STABLE THIS SHIFT, AFFECT APPROPRIATE. SPEECH CONTINUES TO BE RAPID, SLURRED/GARBLED AT TIMES. PT DENIES SI/HI, INTENT OR PLAN. STAFF HAS NOTED A DECREASE IN THE FREQUENCY OF PT'S RESPONSE TO INTERNAL STIMULI, PT HAS NOT BEEN NOTED TO BE TALKING TO UNSEEN OTHERS FREQUENTLY PREVIOUS DAYS. PT IS MEDICATION COMPLIANT THIS DATE WITHOUT DIFFICULTY. PT HAS BEEN CALM AND COOPERATIVE THIS SHIFT. NO DISTRESS NOTED. P- PLAN TO CONTINUE CURRENT TREATMENT, CONTINUE TO MONITOR MOOD AND BEHAVIORS, PROVIDE APPROPRIATE REORIENTATION, REDIRECTION AND 1:1 NEEDED. CONTINUE TO ENCOURAGE MEDICATION COMPLIANCE WELL GROUP ATTENDANCE AND PARTICIPATION.
--- NOTE | 2018-11-09 17:46 | NUR ---
SHIFT CHART CHECK COMPLETED.
[2018-11-09 20:00] VITALS: BP 154/88
--- NOTE | 2018-11-09 21:11 | NUR ---
P--CONFUSION I--ORIENTED TO PLACE AND TIME. DISCUSSED ALL MEDICATIONS HE IS TAKING. OFFERED EMETIONAL SUPPORT. CONTINUE SAFETY CHECKS. OFFERED 1:1. R-SPEECH THICK AND DIFFICULT TO UNDERSTAND. MEDICATION COMPLIANT. DECLINED 1:1 P--CONTINUE ORIENTATION TO PLACE AND TIME. BE AVAILABLE IF CLIENT NEEDS TO TALK. CONTINUE EMOTIONAL SUPPORT AND Q 15 MINUTE AND PRN MONITORING.
--- NOTE | 2018-11-09 21:31 | NUR ---
INCREASED AGGITATION NOTED AT THIS TIME. RESTLESS. GIVEN GINGERALE AT HIS REQUEST AND HIS REPLY YOU HATE ME--(THEN WORDS THAT ARE GARBLED) JUST TELL ME. CLIENT POUR MICHELLE STEVE FROM GLASS TO OTHER GLASS. WILL CONTINUE TO MONITOR
--- NOTE | 2018-11-10 01:22 | NUR ---
AMBULATING IN HALLWAY. PROVIDED WATER TO TAKE TO ROOM
--- NOTE | 2018-11-10 04:39 | NUR ---
24 HR chart check completed.
--- NOTE | 2018-11-10 05:09 | NUR ---
CONTINUES TO FIGHT SLEEP. IN AND OUT OF BATHROOM. WHEN IN HALLWAY HE APPEARS TO BE FIGHTING HIS EYES CLOSING. WILL PASS ON
[2018-11-10 07:24] VITALS: BP 129/81
--- NOTE | 2018-11-10 09:30 | NUR ---
Treatment Plan meeting with Dr. Handley, RN, AT, SW and Poultry Husbandman. Plan for discharge next week. Pt. will return to [facility].
--- NOTE | 2018-11-10 11:49 | NUR ---
AM GROUP/LEISURE INTERESTS PT CHOSE NOT TO ATTEND MORNING GROUP THERAPY. PT STAYED IN BED AND PER NURSES REPORT GOT LITTLE SLEEP LAST NIGHT. PT WILL BE ENCOURAGED TO ATTEND AFTERNOON GROUP
--- NOTE | 2018-11-10 15:36 | NUR ---
HANSEL GREENE/JEFFRY OH PT ATTENDED GROUP BUT DID NOT WATCH THE PROGRAM. PT SAT WITH THIS AGATE SETTER AND TALKED NONSTOP. PT IS HARD TO UNDERSTAND AND GETS FRUSTRATED WHEN HE IS NOT UNDERSTOOD. PT EXPRESSED NO PARANOID DELUSIONS ALTHOUGH SOME OF WHAT HE WAS TALKING ABOUT I COULDN'T UNDERSTAND.
--- NOTE | 2018-11-10 15:52 | NUR ---
Clinical Updates faxed to [facility]. Attn: Jewel.
--- NOTE | 2018-11-10 17:06 | NUR ---
FLIGHT OF IDEAS PT REDIRECTED, ENCOURAGED TO SLOW SPEECH. SPEECH CONTINUES RAPID AND CONVERSATION SWAYS EASILY BETWEEN TOPICS. REDIRECTION INEFFECTIVE AT THIS TIME. PT BECOMES FRUSTRATED WITH CONTINUED REDIRECTION. WILL CONTINUE TO REDIRECT APPROPRIATE AND ENCOURAGE PT TO SLOW SPEECH. WILL ENCOURAGE PARTICIPATION IN GROUP FOR SOCIALIZATION AND SUPPORT.
--- NOTE | 2018-11-10 18:41 | NUR ---
PT PROVIDED WITH AQUAPHOR FOR HEELS AT PT REQUEST.
[2018-11-10 20:00] VITALS: BP 121/83
--- NOTE | 2018-11-10 21:28 | NUR ---
. CLIENT SPEECH REMAINS SLOW AND THICK. DIFFICULT TO UNDERSTAND. APPEARS TO HAVE FLIGHT OF IDEAS AT THIS TIME WHEN I ASK HIM TO REPEAT HIMSELF THE SOUNDS OF THE WORDING CHANGES. GAIT STEADY AND SLOW. MEDICATION COMPLIANT DOESN'T APPEAR TO BE HAVING MANY HALLUCINATIONS SO FAR THIS SHIFT WILL MONITOR FOR SAFETY, CHANGE IN BEHAVIOR OR MOOD
--- NOTE | 2018-11-10 22:21 | NUR ---
.REFUSES PM CARE INCLUDING ORAL CARE KEEPS ASKING FOR A RAZOR TO SHAVE BUT REFUSES SHOWER. WILL REEVALUATE IN MORNING FOR SHOWER
--- NOTE | 2018-11-11 03:55 | NUR ---
24 HR chart check completed.
--- NOTE | 2018-11-11 06:54 | NUR ---
CONTINUES POOR SLEEP. SLEPT ZERO HOURS LAST NIGHT. GOT A FULL SHOWER THIS MORNING THEN NAPPED ABOUT 30 MINUTES
[2018-11-11 07:35] VITALS: BP 124/71
--- NOTE | 2018-11-11 08:30 | NUR ---
Treatment Plan meeting with Dr. Handley, RN, AT, SW and Interventional Sale Consultant. Plan for discharge Thursday with possible Thursday Discharge.
--- NOTE | 2018-11-11 11:37 | NUR ---
DR. GARCIA AND TEAM ON FLOOR TO ASSESS PT. UPDATE PROVIDED.
--- NOTE | 2018-11-11 11:51 | NUR ---
AM GROUP/STRESS REDUCTION PT CHOSE NOT TO ATTEND MORNING GROUP THERAPY. PT WENT TO HIS ROOM
--- NOTE | 2018-11-11 12:01 | NUR ---
Shift chart check completed.
--- NOTE | 2018-11-11 12:25 | NUR ---
P- FLIGHT OF IDEAS. FAST, SLURRED, GARBLED SPEECH. I- HAVE PT SLOW DOWN WHILE TALKING SO OTHERS CAN UNDERSTAND PT. REDIRECT WHEN FLIGHT OF IDEAS ARE PRESENT. PROVIDE MEDICATIONS ON TIME WITH EDUCATION ON EACH MED. R- PT BECOMES IRRITABLE WITH REDIRECTION AND ASKING PT TO SLOW DOWN SPEECH. MEDICATION COMPLIANT WITH NO DIFFICULTIES. ATTENDING AND PARTICIPATING IN GROUP INTERMITTENTLY. PT WANDERS OUT OF THE ROOM WHEN THERE ARE TO MANY PEOPLE IN A ROOM. FLIGHT OF IDEAS REMAIN PRESENT. P- ENCOURAGE TO SLOW DOWN SPEECH. REDIRECT WITH FLIGHT OF IDEAS. ENCOURAGE TO REMAIN MEDICATION COMPLIANT AND EDUCATE ON MEDICATIONS. ENCOURAGE TO ATTEND AND PARTICIPATE IN GROUP THERAPIES. Q15 MINUTE CHECKS MAINTAINED FOR SAFETY.
--- NOTE | 2018-11-11 15:37 | NUR ---
PM GROUP PT ATTENDED AND PARTICIPATED IN GROUP TO THE BEST OF HIS ABILITY. PT EXPRESSED NO PARANOID DELUSIONS DURING GROUP
[2018-11-11 20:00] VITALS: BP 134/82
--- NOTE | 2018-11-11 22:10 | NUR ---
P-HALLUCINATIONS. PATIENT ALERT WITH PERIODS OF CONFUSION. PATIENT WITH SHORT TERM AND MIXING TUMBLER OPERATOR MEMORY DEFICITS. PATIENT WITH NO RESPIRATORY DISTRESS. PATIENT ATTEMPTING TO HIDE VISUAL AND AUDITORY HALLUCINATIONS. PATIENT SEEN WHISPERING AND LAUGHING WITH UNSEEN OTHERS. PATIENT WITH SLURRED SPEECH. I-REDIRECTION WITH 1:1 THERAPEUTIC INTERVENTIONS AND PRESENT REALITY. EDUCATE AND ENCOURAGE MEDICATION COMPLIANCE. R-PATIENT MEDICATION COMPLIANT AT THIS TIME. PATIENT AMBULATING ON UNIT WITHOUT ASSISTIVE DEVICE AND WITH UNSTEADY GAIT AT TIMES. PATIENT WITH FLIGHT OF IDEAS AT TIMES AND NONSENSICAL WHEN TALKING TO PEERS IN DINING AREA AND WITH NURSING STAFF. PATIENT PROVIDED NOURISHMENT AND FLUIDS. PATIENT WITH GOOD APPETITE. PATIENT WANDERING AND PACING AT TIMES ON UNIT. PATIENT REFUSING SKIN ASSESSMENT AT THIS TIME. PATIENT'S MOUTH ALSO CHECKED AFTER MEDICATION ADMINISTRATION TO SEE IF POCKETING/CHEEKING MEDICATIONS P-CONTINUE TO ENCOURAGE MEDICATION COMPLIANCE, CONTINUE TO PRESENT REALITY, ENCOURAGE TO GROUP THERAPY WHILE AWAKE
--- NOTE | 2018-11-12 05:41 | NUR ---
24 HR chart check completed.
--- NOTE | 2018-11-12 05:54 | NUR ---
PATIENT SLEPT 6 HOURS OF INTERRUPTED SLEEP THROUGHOUT SHIFT. Q 15 MINUTE CHECKS MAINTAINED
[2018-11-12 07:52] VITALS: BP 139/84
--- NOTE | 2018-11-12 08:01 | NUR ---
Patient resting quietly with no c/o discomfort. Respirations easy and regular. Vital signs stable. No overt distress. EUSEBIA CHACKO
--- NOTE | 2018-11-12 08:30 | NUR ---
Treatment Plan meeting with Lisa RAMIREZ, RN, AT, SW and Master Tax Advisor. Plan for discharge Next week. Pt. will return to [facility].
--- NOTE | 2018-11-12 09:24 | NUR ---
PT WITH FOI, SLURRED SPEECH, NAPPING INTERMITTENTLY THIS AM. PT ASSESSED FOR MOOD, THOUGHT PROCESS, SI/HI, HALLUCINATIONS AND DELUSIONS. BIOTENE MOUTH SPRAY GIVEN FOR DRY MOUTH, CONTRIBUTING TO GARBLED SPEECH. PT MOOD IS PLEASANT, CALM, COOPERATIVE WITH ASSESSMENT. PT STATES HE FEELS GOOD, HE JUST WANTS TO TAKE A NAP THIS AM. DENIES SI/HI. NO OVERT PARANOIA OR DELUSIONS AT THIS TIME. PT HAS NO S/S OF ATTENDING TO INTERNAL STIMULI AT THIS TIME. PLAN TO CONTINUE CURRENT TREATMENT PLAN. ENCOURAGE PT TO REST NEEDED, AND ATTEND GROUP THERAPY FOR SOCIALIZATION AND SUPPORT. PT ENCOURAGED TO VERBALIZE ANY INTERNAL THOUGHT PROCESSES APPROPRIATE, STAFF WILL PRESENT REALITY APPROPRIATE. ENCOURAGE CONTINUED MEDICATION COMPLIANCE. MAINTAIN Q 15 MIN MONITORING.
--- NOTE | 2018-11-12 10:56 | NUR ---
Spoke with Jewel at [facility]. Advised of plans to discharge Patient next week. Clinical Updates faxed to [facility].
--- NOTE | 2018-11-12 11:45 | NUR ---
AM GROUP/ART AND MUSIC PT ATTENDED GROUP AND PARTICIPATED BY PAINTING A WATERCOLOR FISH. PT WAS QUIET AND ON TASK. PT EXPRESSED NO PARANOID DELUSIONS DURING GROUP
--- NOTE | 2018-11-12 14:59 | NUR ---
Shift chart check completed.
--- NOTE | 2018-11-12 15:40 | NUR ---
PM GROUP/LEISURE INTERESTS PT ATTENDED GROUP AND PARTICIPATED BY WATCHING "PETTICOAT JUNCTION" PT EXPRESSED NO PARANOID IDEATIONS DURING GROUP
[2018-11-12 20:10] VITALS: BP 107/63
--- NOTE | 2018-11-12 23:46 | NUR ---
P-HALLUCINATIONS, FLIGHT OF IDEAS. PATIENT ALERT WITH PERIODS OF CONFUSION. PATIENT WITH SHORT TERM AND INSPECTOR AND TESTER MEMORY DEFICITS. PATIENT WITH NO RESPIRATORY DISTRESS. PATIENT ATTEMPTING TO HIDE VISUAL AND AUDITORY HALLUCINATIONS. PATIENT SEEN WHISPERING AND LAUGHING WITH UNSEEN OTHERS. PATIENT WITH SLURRED SPEECH. I-REDIRECTION WITH 1:1 THERAPEUTIC INTERVENTIONS AND PRESENT REALITY. EDUCATE AND ENCOURAGE MEDICATION COMPLIANCE. R-PATIENT MEDICATION COMPLIANT AT THIS TIME. PATIENT AMBULATING ON UNIT WITHOUT ASSISTIVE DEVICE AND WITH UNSTEADY GAIT AT TIMES. PATIENT WITH FLIGHT OF IDEAS AT TIMES AND NONSENSICAL WHEN TALKING TO PEERS IN DINING AREA AND WITH NURSING STAFF. PATIENT PROVIDED NOURISHMENT AND FLUIDS. PATIENT WITH GOOD APPETITE. PATIENT WANDERING AND PACING AT TIMES ON UNIT. PATIENT REFUSING SKIN ASSESSMENT AT THIS TIME. PATIENT'S MOUTH ALSO CHECKED AFTER MEDICATION ADMINISTRATION TO SEE IF POCKETING/CHEEKING MEDICATIONS. PATIENT ISOLATIVE AT TIMES IN DINING AREA P-CONTINUE TO ENCOURAGE MEDICATION COMPLIANCE, CONTINUE TO PRESENT REALITY, ENCOURAGE TO GROUP THERAPY WHILE AWAKE
--- NOTE | 2018-11-13 00:21 | NUR ---
24 HR chart check completed.
--- NOTE | 2018-11-13 05:38 | NUR ---
PATIENT SLEPT >6 HOURS OF UNINTERRUPTED SLEEP THROUGHOUT SHIFT. Q 15 MINUTE CHECKS MAINTAINED
[2018-11-13 07:28] VITALS: BP 141/70
--- NOTE | 2018-11-13 08:00 | NUR ---
Patient resting quietly with no c/o discomfort. Respirations easy and regular. Vital signs stable. No overt distress. EUSEBIA CHACKO
--- NOTE | 2018-11-13 11:58 | NUR ---
AM GROUP/MUSIC/LEISURE SKILLS PT ATTENDED PART OF GROUP TO FINISH WATERCFOLOR PAINTING. PT COMPLETED PAINTING AND KEPT TO SELF WITH NO PARANOID DELUSIONS EXPRESSED. PT LEFT ROOM AFTER COMPLETING PAINTING TO NOT RETURN. PT WILL CONTINUE TO BE ENCOURAGED TO ATTEND AND PARTICIPATE IN FUTURE GROUP SESSIONS.
--- NOTE | 2018-11-13 16:31 | NUR ---
PM GROUP/ARIADNA PT ATTENDED LAST PART OF GROUP AND OBSERVED. PT QUIET AND PLEASANT WITH NO PARANOID DELUSIONS EXPRESSED. PT WILL CONTINUE TO BE ENCOURAGED TO ATTEND AND PARTICIPATE IN FUTURE GROUP SESSIONS.
--- NOTE | 2018-11-13 17:36 | NUR ---
PT SLURRED SPEECH, APPEARING TO TALK TO SELF OR UNSEEN OTHERS UNDER BREATH. PT REDIRECTED AND PRESENTED WITH REALITY. PT ENCOURAGED TO SLOW SPEECH AND DISCUSS HALLUCINATIONS. PT SPEECH IS THICK AND GARBLED. PT PRESENTS WITH FLIGHT OF IDEAS. WILL CONTINUE TO REDIRECT AND PRESENT PT WITH REALITY. WILL ENCOURAGE PT TO SLOW SPEECH AND FOCUS ON ONE TOPIC BEFORE SWITCHING TO ANOTHER. CONTINUE CURRENT TREATMENT PLAN.
--- NOTE | 2018-11-13 18:50 | NUR ---
Shift chart check completed.
[2018-11-13 20:19] VITALS: BP 108/62
--- NOTE | 2018-11-13 23:36 | NUR ---
P-HALLUCINATIONS, FLIGHT OF IDEAS. PATIENT ALERT WITH PERIODS OF CONFUSION. PATIENT WITH SHORT TERM AND TEST AND BALANCE ENGINEER MEMORY DEFICITS. PATIENT WITH NO RESPIRATORY DISTRESS. PATIENT ATTEMPTING TO HIDE VISUAL AND AUDITORY HALLUCINATIONS. PATIENT SEEN WHISPERING AND LAUGHING WITH UNSEEN OTHERS. PATIENT WITH SLURRED SPEECH. I-REDIRECTION WITH 1:1 THERAPEUTIC INTERVENTIONS AND PRESENT REALITY. EDUCATE AND ENCOURAGE MEDICATION COMPLIANCE. R-PATIENT MEDICATION COMPLIANT AT THIS TIME. PATIENT AMBULATING ON UNIT WITHOUT ASSISTIVE DEVICE AND WITH UNSTEADY GAIT AT TIMES. PATIENT WITH FLIGHT OF IDEAS AT TIMES AND NONSENSICAL WHEN TALKING TO PEERS IN DINING AREA AND WITH NURSING STAFF. PATIENT PROVIDED NOURISHMENT AND FLUIDS. PATIENT WITH GOOD APPETITE. PATIENT WANDERING AND PACING AT TIMES ON UNIT. PATIENT REFUSING SKIN ASSESSMENT AT THIS TIME. PATIENT'S MOUTH ALSO CHECKED AFTER MEDICATION ADMINISTRATION TO SEE IF POCKETING/CHEEKING MEDICATIONS. PATIENT ISOLATIVE AT TIMES IN DINING AREA. PATIENT SHOWERED THIS SHIFT P-CONTINUE TO ENCOURAGE MEDICATION COMPLIANCE, CONTINUE TO PRESENT REALITY, ENCOURAGE GROUP THERAPY WHILE AWAKE
--- NOTE | 2018-11-14 01:06 | NUR ---
24 HR chart check completed.
--- NOTE | 2018-11-14 05:31 | NUR ---
PATIENT SLEPT >7 HOURS OF UNINTERRRUPTED SLEEP THROUGHOUT SHIFT. Q 15 MINUTE CHECKS MAINTAINED
[2018-11-14 07:31] VITALS: BP 139/88
--- NOTE | 2018-11-14 07:48 | NUR ---
Patient resting quietly with no c/o discomfort. Respirations easy and regular. Vital signs stable. No overt distress. EUSEBIA CHACKO
--- NOTE | 2018-11-14 12:06 | NUR ---
AM GROUP/MUSIC/LEISURE SKILLS PT ATTENDED PART OF GROUP TO READ NEWSPAPER AND SKIM THROUGH A BOOK. PT STATES "I'VE JUST BEEN REALLY TIRED". PT WILL CONTINUE TO BE ENCOURAGED TO ATTEND AND PARTICIPATE IN FUTURE GROUP SESSIONS.
--- NOTE | 2018-11-14 15:57 | NUR ---
PT INTERMITTENTLY NAPPING T/O DAY. PT REDIRECTED, ENCOURAGED TO ATTEND GROUP. PT NOT VERY CONVERSIVE WITH STAFF OR PEERS AT THIS TIME. PT OBSERVED SPEAKING UNDER BREATH TO SELF OR UNSEEN OTHERS. PT WOULD NOT ELABORATE. PT WENT IN AND OUT OF GROUP ROOMS, SITTING FOR A WHILE, THEN LAYING DOWN, AND THEN SWITCHING TO ANOTHER QUIET AREA. PT CALM AT THIS TIME, COOPERATIVE, MED COMPLIANT. WILL CONTINUE TO REDIRECT AND ENCOURAGE PT TO SOCIALIZE WITH PEERS AND STAFF. WILL ENCOURAGE CONTINUED MEDICATION COMPLIANCE. WILL PROVIDE 1:1 FOR EMOTIONAL SUPPORT. CONTINUE CURRENT TREATMENT PLAN. MAINTAIN Q15MIN MONITORING.
[2018-11-14 19:59] VITALS: BP 113/71
--- NOTE | 2018-11-14 21:00 | NUR ---
P-HALLUCINATIONS, FLIGHT OF IDEAS. PATIENT ALERT WITH PERIODS OF CONFUSION. PATIENT WITH SHORT TERM AND WALLPAPER CLEANER MEMORY DEFICITS. PATIENT WITH NO RESPIRATORY DISTRESS. PATIENT ATTEMPTING TO HIDE VISUAL AND AUDITORY HALLUCINATIONS. PATIENT SEEN WHISPERING AND LAUGHING WITH UNSEEN OTHERS. PATIENT WITH SLURRED SPEECH. I-REDIRECTION WITH 1:1 THERAPEUTIC INTERVENTIONS AND PRESENT REALITY. EDUCATE AND ENCOURAGE MEDICATION COMPLIANCE. R-PATIENT MEDICATION COMPLIANT AT THIS TIME. PATIENT AMBULATING ON UNIT WITHOUT ASSISTIVE DEVICE AND WITH UNSTEADY GAIT AT TIMES. PATIENT WITH FLIGHT OF IDEAS AT TIMES AND NONSENSICAL WHEN TALKING TO PEERS IN DINING AREA AND WITH NURSING STAFF. PATIENT PROVIDED NOURISHMENT AND FLUIDS. PATIENT WITH GOOD APPETITE. PATIENT WANDERING AND PACING AT TIMES ON UNIT. PATIENT REFUSING SKIN ASSESSMENT AT THIS TIME. PATIENT'S MOUTH ALSO CHECKED AFTER MEDICATION ADMINISTRATION TO SEE IF POCKETING/CHEEKING MEDICATIONS. PATIENT ISOLATIVE AT TIMES IN DINING AREA THROUGHOUT SHIFT. P-CONTINUE TO ENCOURAGE MEDICATION COMPLIANCE, CONTINUE TO PRESENT REALITY, ENCOURAGE GROUP THERAPY WHILE AWAKE
--- NOTE | 2018-11-15 01:41 | NUR ---
24 HR chart check completed.
--- NOTE | 2018-11-15 05:48 | NUR ---
PATIENT SLEPT 4 HOURS OF INTERRUPTED SLEEP THROUGHOUT SHIFT. Q 15 MINUTE CHECKS MAINTAINED
[2018-11-15 07:31] VITALS: BP 135/64
--- NOTE | 2018-11-15 07:45 | NUR ---
PT AWAKE, ALERT AND VERBAL, PLEASANT, RESPS EASY AND EVEN ON ROOM AIR. EATING BREAKFAST IN DINING ROOM WITH PEERS.
--- NOTE | 2018-11-15 08:00 | NUR ---
Treatment Plan meeting with Dr. Handley, RN, AT, SW and Teacher Private. Plan for discharge today. [facility].
--- NOTE | 2018-11-15 08:07 | NUR ---
ON UNIT TO SEE PT AT THIS TIME, UPDATE GIVEN.
--- NOTE | 2018-11-15 08:58 | NUR ---
SENA CLOCK AND WATCH ASSEMBLER AWARE OF DISCHARGE FOR TODAY.
[2018-11-15] MEDS ORDERED: BIOTENE MOIST44.3 ML PO (09:32)
[2018-11-15] MEDS ORDERED: BENZTROPINE MESY1 MG PO (09:32)
[2018-11-15] MEDS ORDERED: DIVALPROEX SOD500 M1 PO (09:32)
[2018-11-15] MEDS ORDERED: TRAZODONE150 MG PO (09:32)
[2018-11-15] MEDS ORDERED: ZIPRASIDONE HCL80 M1 PO (09:32)
--- NOTE | 2018-11-15 10:29 | NUR ---
SENA BLACK TOP PAVER OPERATOR ON UNIT TO SEE PT AT THIS TIME, AWARE OF DISCHARGE SCHEDULED FOR TODAY AT 3PM.
--- NOTE | 2018-11-15 10:40 | NUR ---
Spoke with Jewel in Admissions at [facility]. Advised of discharge today with olive picker time 3:00, p.m.
--- NOTE | 2018-11-15 11:10 | NUR ---
Left Voice Message for Rea Antonio Pt. Legal Guardian through [employer] to notify of discharge today and upholstered goods crafter time.
--- NOTE | 2018-11-15 11:24 | NUR ---
P- MOOD STABLE, SPEECH CONTINUES TO BE RAPID, SLURRED/GARBLED AT TIMES, ABLE TO MAKE NEEDS KNOWN WITHOUT DIFFICULTY. NO AGGRESSIVE/COMBATIVE BEHAVIORS. MEDICATION COMPLIANT WITHOUT DIFFICULTY. I- ORIENTATION, MOOD AND BEHAVIOR ASSESSED. ASSESSED PT FOR SI/HI, INTENT OR PLAN. ASSESSED PT FOR S/S HALLUCINATIONS, PARANOIA AND/OR DELUSIONS. MEDICATIONS ADMINISTERED PER PHYSICIAN'S ORDERS. ENCOURAGED PT TO ATTEND AND PARTICIPATE IN [facility] [facility] GROUPS AND ACTIVITIES. R- PT IS ALERT AND ORIENTED TO PERSON, APPROXIMATE PLACE AND TIME. RESPS EASY AND EVEN ON ROOM AIR. MOOD APPEARS TO BE STABLE, AFFECT IS APPROPRIATE. SPEECH CONTINUES TO BE RAPID, SLURRED/GARBLED AT TIMES. PT IS PLEASANT AND COOPERATIVE, ABLE TO MAKE NEEDS KNOWN WITHOUT DIFFICULTY. PT DENIES SI/HI, INTENT OR PLAN. PT DENIES HALLUCINATIONS, NO RESPONSE TO INTERNAL STIMULI NOTED. NO PARANOIA OR DELUSIONS NOTED. PT IS MEDICATION COMPLIANT WITHOUT DIFFICULTY. NO DISTRESS NOTED. P- PLAN TO CONTINUE CURRENT TREATMENT, CONTINUE TO MONITOR MOOD AND BEHAVIORS, PROVIDE APPROPRIATE REORIENTATION, REDIRECTION AND 1:1 NEEDED. CONTINUE TO ENCOURAGE MEDICATION COMPLIANCE WELL GROUP ATTENDANCE AND PARTICIPATION.
--- NOTE | 2018-11-15 11:53 | NUR ---
Pt is discharging today to [facility]. Follow-up will be with Dr Handley, visiting psychiatrist. While at [facility], pt improved. Pt did not display aggressive behaviors. His voicing of delusional content lessened. He did show imnprovement in his sleep. Pt was pleasant and cooperative with staff.
--- NOTE | 2018-11-15 11:57 | NUR ---
AM GROUP/EXERCISE PT ATTENDED GROUP BUT CHOSE NOT TO PARTICIPATE. PT WAS NOTED TO BE DOING A FEW OF THE EXERCISES. PT EXPRESSED NO PARANOID IDEATIONS DURING GROUP
--- NOTE | 2018-11-15 14:36 | NUR ---
NURSE TO NURSE REPORT GIVEN TO YUAN AT [facility]. MED LIST FAXED TO FACILITY PER REQUEST. ALL QUESTIONS ANSWERED.
--- NOTE | 2018-11-15 15:41 | NUR ---
PT DISCHARGED AT THIS TIME BACK TO [facility] VIA [facility] SERVICE STRETCHER WITH 2 HAND COPER. ALL PERSONAL BELONGINGS WERE SENT WITH THE PT INCLUDING LOCK BOX ITEMS WHICH WERE PLACED IN PT BELONGING BAG IN THE PRESENCE OF [facility] STAFF MEMBERS AND PT. DISCHARGE INSTRUCTIONS PROVIDED FOR FACILITY AND TO BE SENT TO LEGAL GUARDIAN. PT LEFT THE UNIT IN STABLE CONDITION AT 1541.
== END 2018-11-15 15:41 | DRG 885 ==
LOC: 3N 15:43
PROVIDERS: ADMIT Psychiatry & Neurology Psychiatry
DX: F25.9 Schizoaffective disorder, unspecified (principal); I50.32 Chronic diastolic (congestive) heart failure; I13.0 Hypertensive heart and chronic kidney disease with heart failure and stage 1 through stage 4 chronic kidney disease, or unspecified chronic kidney disease; F22 Delusional disorders; J44.9 Chronic obstructive pulmonary disease, unspecified; F17.210 Nicotine dependence, cigarettes, uncomplicated; K21.9 Gastro-esophageal reflux disease without esophagitis; F41.9 Anxiety disorder, unspecified; N18.2 Chronic kidney disease, stage 2 (mild); E11.22 Type 2 diabetes mellitus with diabetic chronic kidney disease; E66.01 Morbid (severe) obesity due to excess calories; E78.5 Hyperlipidemia, unspecified; I25.10 Atherosclerotic heart disease of native coronary artery without angina pectoris; Z71.6 Tobacco abuse counseling; Z85.46 Personal history of malignant neoplasm of prostate; Z88.0 Allergy status to penicillin; Z88.2 Allergy status to sulfonamides; Z87.820 Personal history of traumatic brain injury; Z82.49 Family history of ischemic heart disease and other diseases of the circulatory system; Z80.8 Family history of malignant neoplasm of other organs or systems; Z79.899 Other long term (current) drug therapy; Z79.84 Long term (current) use of oral hypoglycemic drugs; Z68.35 Body mass index [BMI] 35.0-35.9, adult